=== PATIENT | female | born 1995 | race Caucasian/White ===

== ENCOUNTER 2017-11-15 17:26 | Emergency (ER) | payer OTHER ==
[~2017-11-15] VITALS: Ht 157.5 cm; Wt 68.0 kg
[2017-11-15 17:31] VITALS: BP 122/73
== END 2017-11-15 18:00 | disposition home or self-care (01) ==
LOC: ER 17:31
DX: S61.300A Unspecified open wound of right index finger with damage to nail, initial encounter (principal); W23.1XXA Caught, crushed, jammed, or pinched between stationary objects, initial encounter; Y93.89 Activity, other specified; Y92.89 Other specified places as the place of occurrence of the external cause; Y99.8 Other external cause status
CPT/HCPCS: A4606; A6402; Z7610

== ENCOUNTER 2018-06-27 01:26 | Emergency (ER) | payer OTHER ==
[~2018-06-27] VITALS: Ht 162.6 cm; Wt 66.7 kg
[2018-06-27 01:45] VITALS: BP 132/61
== END 2018-06-27 02:06 | disposition home or self-care (01) ==
LOC: ER 01:27
DX: J20.9 Acute bronchitis, unspecified (principal); R10.84 Generalized abdominal pain
CPT/HCPCS: 99283; A4606; Z7610